=== PATIENT | female | born 1965 ===

== ENCOUNTER 2016-12-16 09:34 | Day surgery (SDC) | payer BC ==
[2016-12-16] MEDS ORDERED: Clindamycin 900 MG IVPREMIX(* 900 MG/50 ML SDV IV ONE (09:52)
[2016-12-16] MEDS ORDERED: Buffered Lidocaine 0.9% SYRIN* 5 ML/SYR SYRINGE ONE (09:52)
[2016-12-16] MEDS ORDERED: Dexamethasone IV* 4 MG/ML 5 ML VIAL (20 MG) ONE (11:47)
[2016-12-16] MEDS ORDERED: Lidocaine 1% INJ* 10 MG/ML 30 ML SDV ONE (11:47)
[2016-12-16] MEDS ORDERED: Bupivacaine 0.25% SDV* 30 ML ONE (11:47)
[2016-12-16] MEDS ORDERED: fentaNYL* 50 MCG/ML 2 ML VIAL (100 MCG VIAL) ONE (11:53)
[2016-12-16] MEDS ORDERED: Midazolam* 1 MG/ML 2 ML VIAL (2 MG) ONE (11:53)
[2016-12-16 13:26] VITALS: BP 129/72
--- NOTE | 2016-12-17 03:31 | OP ---
DATE OF OPERATION: 12/16/16 - [facility] DATE OF : 61 SURGEON: Johnathon Babb DPM ANESTHESIOLOGIST: Yoshi Fletcher MD ANESTHESIA: MAC local. PRE-OP DIAGNOSIS: Right second toe osteomyelitis. POST-OP DIAGNOSIS: Right second toe osteomyelitis. OPERATIVE PROCEDURE: Right second toe partial amputation. ESTIMATED BLOOD LOSS: Less than 10 cc. IV FLUIDS: LR 1000 cc. DRAINS: None. SPECIMENS: Distal tip of the right second toe. DESCRIPTION OF PROCEDURE: The patient was taken to the operating room and was placed in the supine position. Time-out was called and OR team agreed. The right foot was then blocked with 5 cc of 1% lidocaine plain in a ring block fashion to the base of the second toe. The foot was then prepped and draped in a sterile manner. The right foot was exsanguinated with an Esmarch bandage and the cuff was inflated to 250 mmHg. Attention was then paid to the right second toe. I made a fishmouth incision at the distal tip with a #15 blade, the dissection was taken down to bone. I disarticulated the distal phalanx and removed the distal portion of the toe. I inspected the head of the proximal phalanx and then I decided to remove the cartilaginous portion to ensure that I was able to remove all the infected bone. This completed the procedure. The wound was then irrigated with normal saline. I proceeded to approximate the wound deeper with 3-0 Polysorb and then with 4-0 nylon. This completed the procedure. I injected the site with 5 cc of 0.25% Marcaine plain. The cuff was then deflated. The foot was placed in dry sterile dressing. I made sure that the amputated stump turned pink. There was good capillary refill instantaneous. The patient was taken to Recovery in stable condition, was later discharged in stable condition as well. [id number]/[id number] #: [id number] MTDBharati
--- NOTE | 2016-12-17 03:31 | OP ---
DICTATION ENDS ABRUPTLY - FULLY REDICTATED DATE OF OPERATION: 12/16/16 - [facility] DATE OF : 61 SURGEON: Johnathon Babb DPM. ANESTHESIOLOGIST: Yoshi Fletcher MD ANESTHESIA: MAC local. PRE-OP DIAGNOSIS: First and second toe osteomyelitis. POST-OP DIAGNOSIS: First and second toe osteomyelitis. OPERATIVE PROCEDURE: Partial amputation of the right second toe. ESTIMATED BLOOD LOSS: Less than 10 cc. IV FLUIDS: LR 1000 cc. DRAINS: None. SPECIMENS: Distal tip of the right second toe. DESCRIPTION OF PROCEDURE: The patient was taken to the operating room, was placed in supine position. Time-out was called and OR team agreed. The right foot was then blocked with 0.5 cc of 1% lidocaine plain in a ring-block fashion at the base of the second toe. The foot was then prepped and draped in a sterile manner. The right foot was exsanguinated with an Esmarch bandage and the cuff was then inflated to 250 mmHg. Attention was then paid to the distal tip of the right second toe. There is an ulcer noted, the size of 0.4 x 0.5 x 0.6 cm. This is a full thickness ulcer past the subcutaneous tissue. MRI shows that there is an underlying osteomyelitis to the distal tip of the toe at the distal phalanx. I made a fish-mouth incision #15 blade. I focussed down to the bone, I then proceeded to disarticulate the DICTATION ENDS ABRUPTLY HERE [id number]/[facility] #: [id number] MTDBharati
== END 2016-12-16 13:56 | disposition home or self-care (01) ==
LOC: OR 09:34
PROVIDERS: ATTEND Podiatrist
DX: M86.8X7 Other osteomyelitis, ankle and foot (principal); E11.9 Type 2 diabetes mellitus without complications; I10 Essential (primary) hypertension
CPT/HCPCS: 87070; 87073; 87077; 87186; 87205; 87640; 87641; 88305; 88311; J2001; J2250; J3010